=== PATIENT | male | born 1980 | race Caucasian/White ===

== ENCOUNTER 2018-03-12 13:37 | Emergency (ER) | payer BC, OTHER ==
[2018-03-12 14:03] VITALS: BP 133/89; PULSE 77; RESP 16; TEMP 98.4
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
== END 2018-03-12 14:52 | disposition home or self-care (01) ==
LOC: EC 13:37
DX: Z77.21 Contact with and (suspected) exposure to potentially hazardous body fluids (principal); F17.200 Nicotine dependence, unspecified, uncomplicated; Z53.29 Procedure and treatment not carried out because of patient's decision for other reasons
CPT/HCPCS: 86706; 86803; 87340; 87390; 99282

== ENCOUNTER → 2019-05-30 | Outpatient (CLI) | payer BC ==
--- NOTE | 2019-05-30 14:39 | XR ---
EXAMINATION TYPE: XR chest 2V DATE OF EXAM: 05/30/2019 COMPARISON: NONE HISTORY: Acute bronchitis. TECHNIQUE: Frontal and lateral views of the chest are obtained. FINDINGS: Central peribronchial cuffing is present. There is no focal air space opacity, pleural eff usion, or pneumothorax seen. The cardiac silhouette size is within normal limits. The osseous stru ctures are intact. Cholecystectomy clips are noted. IMPRESSION: Central peribronchial cuffing, indicative of reactive or infectious [facility] patient's diagnosis of bronchitis. No focal consolidation to suggest pneumonia.
== END | disposition home or self-care (01) ==
LOC: RADXRMAIN 14:15
PROVIDERS: ATTEND Family Medicine
DX: J20.9 Acute bronchitis, unspecified (principal)
CPT/HCPCS: 71046

== ENCOUNTER → 2019-06-19 | Outpatient (CLI) | payer BC ==
--- NOTE | 2019-06-19 11:00 | ECHOF ---
Referral Reason:R07.9 chest pain MEASUREMENTS -------- HEIGHT: 175.3 cm WEIGHT: 97.5 kg BP: RVIDd: 3.0 cm (< 3.3) IVSd: 1.2 cm (0.6 - 1.1) LVIDd: 4.4 cm (3.9 - 5.3) LVPWd: 1.3 cm (0.6 - 1.1) IVSs: 1.7 cm LVIDs: 2.0 cm LVPWs: 2.2 cm LAESV Index (A-L): 16.24 ml/m Ao Diam: 3.1 cm (2.0 - 3.7) AV Cusp: 2.4 cm (1.5 - 2.6) LA Diam: 3.3 cm (2.7 - 3.8) MV EXCURSION: 14.577 mm (> 18.000) MV EF SLOPE: 99 mm/s (70 - 150) EPSS: 0.7 cm MV E Joesph: 0.88 m/s MV DecT: 174 ms MV A Joesph: 0.53 m/s MV E/A Ratio: 1.66 RAP: 5.00 mmHg RVSP: 19.52 mmHg TAPSE: 23.82 mm FINDINGS -------- Sinus rhythm. This was a technically good study. The left ventricular size is normal. There is mild concentric left ventricular hypertrophy. Overa ll left ventricular systolic function is normal with, an EF between 55 - 60 %. The diastolic fillin g pattern is normal for the age of the patient 7.46. The right ventricle is normal in size. The right ventricular systolic function is normal. The left atrial size is normal. Normal LA size by volume 22+/-6 ml/m2. The right atrial size is normal. Interatrial and interventricular septum intact. The aortic valve is trileaflet and appears structurally normal. The mitral valve is normal. The mitral valve leaflets are mildly thickened. There is trace mitral regurgitation. The tricuspid valve appears structurally normal. Trace tricuspid regurgitation present. Right shell tricular systolic pressure is normal at < 35 mmHg. There is no pulmonic regurgitation present. The aortic root size is normal. Normal inferior vena cava with normal inspiratory collapse consistent with estimated right atrial pre ssure of 5 mmHg. There is no pericardial effusion. CONCLUSIONS -------- 1. Sinus rhythm. 2. This was a technically good study. 3. The left ventricular size is normal. 4. There is mild concentric left ventricular hypertrophy. 5. Overall left ventricular systolic function is normal with, an EF between 55 - 60 %. 6. The diastolic filling pattern is normal for the age of the patient 7.46 7. The right ventricle is normal in size. 8. The right ventricular systolic function is normal. 9. The left atrial size is normal. 10. Normal LA size by volume 22+/-6 ml/m2. 11. The right atrial size is normal. 12. Interatrial and interventricular septum intact. 13. The aortic valve is trileaflet and appears structurally normal. 14. The mitral valve is normal. 15. The mitral valve leaflets are mildly thickened. 16. There is trace mitral regurgitation. 17. The tricuspid valve appears structurally normal. 18. Trace tricuspid regurgitation present. 19. Right ventricular systolic pressure is normal at < 35 mmHg. 20. There is no pulmonic regurgitation present. 21. The aortic root size is normal. 22. Normal inferior vena cava with normal inspiratory collapse consistent with estimated right atrial pressure of 5 mmHg. 23. There is no pericardial effusion. KETTLE OPERATOR: Pat Oliveira RDCS
--- NOTE | 2019-06-19 11:56 | ECHOS ---
STRESS ECHOCARDIOGRAM INDICATIONS: Chest pain. MEDICATIONS: Hyzaar BASELINE HEART RATE: 64 BASELINE BLOOD PRESSURE: 104/50 MAXIMUM HEART RATE: 164 MAXIMUM BLOOD PRESSURE: 201/58 85% MPHR: 154 100% MPHR: 181 METS: 15 MAXIMUM STAGE REACHED: V TOTAL EXERCISE TIME: 14:12 CLINICAL INFORMATION: Baseline EKG shows sinus rhythm with early repolarization changes. Patient exercised on Mekhi protocol for a total all 14 minutes achieving 15 METS 85% of predicted maximal heart rate without chest pain. At peak exercise there were nondiagnostic ST-T wave changes noted. Baseline echo shows normal left ventricular size wall motion systolic function. Postexercise there is normal hyperdynamic response of all segments of myocardium noted. CONCLUSION: 1. Excellent exercise tolerance. 2. Negative stress test by EKG criteria. 3. Negative stress echo. MMODL / IJN: [id number] /
== END | disposition home or self-care (01) ==
LOC: RADNMMAIN 09:39
PROVIDERS: ATTEND Family Medicine
DX: I51.7 Cardiomegaly (principal); R07.9 Chest pain, unspecified
CPT/HCPCS: 93306; 93351

== ENCOUNTER → 2021-09-29 | Outpatient (CLI) | payer BC ==
--- NOTE | 2021-09-29 17:32 | CT ---
EXAMINATION TYPE: CT abdomen pelvis wo con DATE OF EXAM: 09/29/2021 COMPARISON: None HISTORY: flank pain CT DLP: 1127 mGycm Automated exposure control for dose reduction was used. Images obtained from the diaphragm to the floor the pelvis with no contrast. Lung bases are clear of consolidation. There is no pleural effusion. There is mild subsegmental atele ctasis at the posterior lung bases. Heart size is normal. There is no pericardial effusion. Liver spleen and stomach pancreas appear intact. The bile ducts are not dilated. There are clips from cholecystectomy. There is no adrenal mass. There are complex cysts that contain calcium in the upper pole left kidney. These measure up to 4 cm. There is no hydronephrosis. Ureters are not dilated. There is no retroperi toneal adenopathy. Bladder distends smoothly. There is no inguinal hernia. There is no free fluid in the pelvis. There is no mesenteric edema. There is no ascites or free air. There is no bowel obstruction. Appendi x is posterior and lateral and appears normal. The lumbar vertebrae have normal alignment. Posterior elements are intact. Disc spaces are normal. Th ere is no compression fracture. The bony pelvis is intact. The hip joints are intact. IMPRESSION: Complex lobulated cyst upper pole left kidney with relatively thin wall. This cyst also present on th e old ultrasound exam of 07/06/2016 and not significantly changed in size. Calcification pattern prob ably not changed. I have low suspicion of tumor. No evidence of renal obstruction. Normal appendix.
== END | disposition home or self-care (01) ==
LOC: RADCTMAIN 16:40
PROVIDERS: ATTEND Family Medicine
DX: N28.1 Cyst of kidney, acquired (principal)
CPT/HCPCS: 74176

== ENCOUNTER 2023-11-08 10:05 | Emergency (ER) | payer BC, OTHER ==
[2023-11-08] MEDS: KETOROLAC 15 MG/ML 1 ML VIAL IM STA (10:36)
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
--- NOTE | 2023-11-08 11:27 | XR ---
EXAMINATION TYPE: XR shoulder complete RT DATE OF EXAM: 11/08/2023 CLINICAL HISTORY: pain TECHNIQUE: Three views of the right shoulder are obtained. COMPARISON: None FINDINGS: There is no acute fracture/dislocation evident. The acromioclavicular and glenohumeral nicolas int spaces appear within normal limits. The visualized ribs are intact and unremarkable. IMPRESSION: 1. There is no acute fracture or dislocation. ICD 10 NO FRACTURE, INITIAL EVALUATION
--- NOTE | 2023-11-08 11:27 | XR ---
EXAMINATION TYPE: XR knee complete RT DATE OF EXAM: 11/08/2023 CLINICAL HISTORY: pain TECHNIQUE: Three views of the right knee are obtained. COMPARISON: None. FINDINGS: There is no acute fracture/dislocation. The tri-compartment joint spaces appear within no rmal limits. The overlying soft tissue appears unremarkable. IMPRESSION: There is no acute fracture or dislocation.ICD 10 NO FRACTURE, INITIAL EVALUATION
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
[2023-11-08 13:29] VITALS: BP 145/82; PULSE 63; RESP 16; TEMP 98.4
== END 2023-11-08 12:50 | disposition home or self-care (01) ==
LOC: EC 10:05
DX: S20.211A Contusion of right front wall of thorax, initial encounter (principal); S80.211A Abrasion, right knee, initial encounter; M25.511 Pain in right shoulder; F17.200 Nicotine dependence, unspecified, uncomplicated; Y09 Assault by unspecified means
CPT/HCPCS: 71101; 73030; 73562; 99283; 96372; J1885